=== PATIENT | female | born 1950 | race Caucasian/White ===

== ENCOUNTER 2021-03-26 17:24 | Emergency (ER) | payer MEDICARE, OTHER ==
[2021-03-26] MEDS ORDERED: ULTRAM50 MG PO (18:47)
== END 2021-03-26 19:12 | disposition home or self-care (01) ==
LOC: FER 17:24
DX: S92.341A Displaced fracture of fourth metatarsal bone, right foot, initial encounter for closed fracture (principal); I25.2 Old myocardial infarction; I10 Essential (primary) hypertension; Z79.899 Other long term (current) drug therapy; Z79.82 Long term (current) use of aspirin; W06.XXXA Fall from bed, initial encounter; Y92.009 Unspecified place in unspecified non-institutional (private) residence as the place of occurrence of the external cause
CPT/HCPCS: 73610; 73630

== ENCOUNTER 2021-06-23 11:12 | Inpatient (IN) | payer MEDICARE, OTHER ==
[~2021-06-23] VITALS: Ht 165.1 cm; Wt 49.1 kg
[~2021-06-23 11:12] MED LIST: ULTRAM50 MG PO
[2021-06-23 12:01] LABS: BASOPHIL 0.4 % (0-2); EOSINOPHIL 4.9 % (0-7); HCT 28.3 % (37.0-47.0); HGB 9.2 g/dl (12.5-16.0); LYMPHOCYTE 28.1 % (15-48); MCH 35.7 pg (25.0-31.0); MCHC 32.5 g/dL (32.0-36.0); MCV 109.7 fL (78.0-100.0); MONOCYTE 4.7 % (0-12); MPV 13.2 fL (6.0-9.5); NEUTROPHIL 61.4 % (41-80); NRBC 0; RBC 2.58 M/uL (4.20-5.40); RDW 13.5 % (11.5-14.0); WBC 5.5 K/uL (4.0-10.5)
[2021-06-23 12:05] LABS: BILIRUBIN NEGATIVE (NEGATIVE); BLOOD 1+ Ery/uL (NEGATIVE); CLARITY CLEAR (CLEAR); COLOR YELLOW (YELLOW); GLUCOSE (U) NORMAL (NORMAL); LEUKOCYTES 2+ Leu/uL (NEGATIVE); NITRITE POSITIVE (NEGATIVE); PROTEIN 2+ mg/dL (NEGATIVE); SPECIFIC GRAVITY 1.025 (1.001-1.030); UROBILINOGEN 0.2 mg/dL (0.2-1.0)
[2021-06-23 12:11] LABS: PLT 83 K/uL (150-400)
[2021-06-23 12:19] LABS: BACTERIA 4+
[2021-06-23 12:43] LABS: CORONAVIRUS 2019 SARS-COV-2 POSITIVE (NEGATIVE)
[2021-06-23 12:44] LABS: INFLUENZA A NAA NEGATIVE (NEGATIVE)
[2021-06-23 13:23] LABS: ALBUMIN 2.7 g/dL (3.4-5.0); BILIRUBIN - TOTAL 0.2 mg/dL (0.2-1.0); CREATININE 3.09 mg/dL (0.51-0.95); POTASSIUM 4.2 mmol/L (3.5-5.1); TOTAL PROTEIN 5.7 g/dL (6.4-8.2)
[2021-06-23] MEDS ORDERED: NORVASC5 MG PO (18:14)
[2021-06-23] MEDS ORDERED: ASPIRIN EC81 MG PO (18:15)
[2021-06-23] MEDS ORDERED: SYMBICORT 80-10.2 GM INH (18:16)
[2021-06-23] MEDS ORDERED: CATAPRES-TTS 11 EACH PO (18:17)
[2021-06-23] MEDS ORDERED: NEURONTIN100 MG PO (18:17)
[2021-06-23] MEDS ORDERED: ZOLOFT100 M1 PO (18:18)
[2021-06-23] MEDS ORDERED: XOPENEX HFA15 GM INH (18:18)
[2021-06-23] MEDS ORDERED: XARELTO15 MG PO (18:18)
[2021-06-23] MEDS ORDERED: SPIRIVA18 MCG INH (18:19)
[2021-06-23] MEDS ORDERED: SODIUM BICARBO650 M1 PO (18:19)
[2021-06-24 06:32] LABS: BASOPHIL 0.2 % (0-2); HCT 23.3 % (37.0-47.0); HGB 7.5 g/dl (12.5-16.0); LYMPHOCYTE 40.8 % (15-48); MCHC 32.2 g/dL (32.0-36.0); MCV 108.9 fL (78.0-100.0); MPV 13.3 fL (6.0-9.5); NEUTROPHIL 45.4 % (41-80); NRBC 0; PLT 68 K/uL (150-400); RBC 2.14 M/uL (4.20-5.40); RDW 13.3 % (11.5-14.0)
[2021-06-24 06:41] LABS: WBC 4.8 K/uL (4.0-10.5)
[2021-06-24 06:58] LABS: IRON % SATURATION 34.1 %SAT (20-50)
[2021-06-24 07:23] LABS: CREATININE 2.72 mg/dL (0.51-0.95); FOLIC ACID (SERUM) 13.2 ng/mL (8.6-58.9); POTASSIUM 4.2 mmol/L (3.5-5.1)
[2021-06-24 17:18] LABS: HGB 7.7 g/dl (12.5-16.0); MCH 35.3 pg (25.0-31.0); MCHC 30.8 g/dL (32.0-36.0); MPV 12.9 fL (6.0-9.5); RBC 2.18 M/uL (4.20-5.40); RDW 13.6 % (11.5-14.0); WBC 5.1 K/uL (4.0-10.5)
[2021-06-24 17:20] LABS: MCV 114.7 fL (78.0-100.0)
[2021-06-24 17:35] LABS: BUN/CREAT RATIO (CALC) 31.6 RATIO; CREATININE 2.5 mg/dL (0.51-0.95); MAGNESIUM 1.9 mg/dL (1.8-2.4); PHOSPHORUS 2.6 mg/dL (2.6-4.7)
[2021-06-25 07:24] LABS: BASOPHIL 0.2 % (0-2); EOSINOPHIL 9.7 % (0-7); HCT 24.3 % (37.0-47.0); HGB 7.9 g/dl (12.5-16.0); LYMPHOCYTE 36.1 % (15-48); MCH 35.7 pg (25.0-31.0); MCHC 32.5 g/dL (32.0-36.0); MONOCYTE 7.1 % (0-12); MPV 13.4 fL (6.0-9.5); NRBC 0; RBC 2.21 M/uL (4.20-5.40); RDW 13.5 % (11.5-14.0)
[2021-06-25 07:27] LABS: BUN/CREAT RATIO (CALC) 32.3 RATIO; CREATININE 2.26 mg/dL (0.51-0.95); POTASSIUM 4.1 mmol/L (3.5-5.1)
[2021-06-25 07:56] LABS: WBC 4.7 K/uL (4.0-10.5)
[2021-06-25 07:57] LABS: PLT 69 K/uL (150-400)
--- NOTE | 2021-06-25 12:15 | NUR ---
06/25 Ms. Umanzor lives alone. She has 02 at 2L, portable, rw, 3in1, and s. chair. Her 02 is provided by [facility] out of [place]. Ms. Umanzor chose [facility] for PT and nursing.; awaiting response from [facility]. Her son and granddaughter are supportive. HEr granddaughter is a RN.
[2021-06-26 06:33] LABS: BASOPHIL 0.4 % (0-2); EOSINOPHIL 4.1 % (0-7); HCT 25.4 % (37.0-47.0); HGB 8.3 g/dl (12.5-16.0); MCH 35.5 pg (25.0-31.0); MCHC 32.7 g/dL (32.0-36.0); MCV 108.5 fL (78.0-100.0); MONOCYTE 6.5 % (0-12); MPV 13.3 fL (6.0-9.5); NEUTROPHIL 65.6 % (41-80); NRBC 0; RBC 2.34 M/uL (4.20-5.40); RDW 13.7 % (11.5-14.0)
[2021-06-26 07:02] LABS: PLT 84 K/uL (150-400)
[2021-06-26 07:05] LABS: ALBUMIN 2.4 g/dL (3.4-5.0); BILIRUBIN - TOTAL 0.2 mg/dL (0.2-1.0); CREATININE 1.9 mg/dL (0.51-0.95); GLOBULIN (CALCULATION) 2.7 g/dL; POTASSIUM 4.1 mmol/L (3.5-5.1); TOTAL PROTEIN 5.1 g/dL (6.4-8.2)
[2021-06-26 13:06] LABS: PRO-BNP > 35000 pg/mL (<125)
[2021-06-27 06:36] LABS: BASOPHIL 0.2 % (0-2); EOSINOPHIL 0 % (0-7); HCT 26.1 % (37.0-47.0); HGB 8.2 g/dl (12.5-16.0); LYMPHOCYTE 5.7 % (15-48); MCH 34.9 pg (25.0-31.0); MCHC 31.4 g/dL (32.0-36.0); MCV 111.1 fL (78.0-100.0); MONOCYTE 5.9 % (0-12); MPV 12.4 fL (6.0-9.5); NEUTROPHIL 87.4 % (41-80); NRBC 0; PLT 100 K/uL (150-400); RBC 2.35 M/uL (4.20-5.40); RDW 14.1 % (11.5-14.0); WBC 12.2 K/uL (4.0-10.5)
[2021-06-27 07:31] LABS: ALBUMIN 2.3 g/dL (3.4-5.0); BILIRUBIN - TOTAL 0.4 mg/dL (0.2-1.0); BUN/CREAT RATIO (CALC) 28.3 RATIO; CREATININE 2.19 mg/dL (0.51-0.95); GLOBULIN (CALCULATION) 3.5 g/dL; MAGNESIUM 1.6 mg/dL (1.8-2.4); TOTAL PROTEIN 5.8 g/dL (6.4-8.2)
[2021-06-28 04:36] LABS: BASOPHIL 0.1 % (0-2); EOSINOPHIL 0 % (0-7); HCT 25.5 % (37.0-47.0); HGB 8.1 g/dl (12.5-16.0); LYMPHOCYTE 3.6 % (15-48); MCH 35.1 pg (25.0-31.0); MCHC 31.8 g/dL (32.0-36.0); MCV 110.4 fL (78.0-100.0); MONOCYTE 3.5 % (0-12); MPV 12.9 fL (6.0-9.5); NRBC 0; PLT 105 K/uL (150-400); RBC 2.31 M/uL (4.20-5.40); RDW 14.3 % (11.5-14.0); WBC 16.4 K/uL (4.0-10.5)
[2021-06-28 04:37] LABS: NEUTROPHIL 92.1 % (41-80)
[2021-06-28 04:47] LABS: ALBUMIN 2.5 g/dL (3.4-5.0); BILIRUBIN - TOTAL 0.4 mg/dL (0.2-1.0); BUN/CREAT RATIO (CALC) 28.4 RATIO; C-REACTIVE PROTEIN 16.5 mg/dL (<=0.90); CREATININE 2.5 mg/dL (0.51-0.95); GLOBULIN (CALCULATION) 3.6 g/dL; TOTAL PROTEIN 6.1 g/dL (6.4-8.2)
--- NOTE | 2021-06-28 18:43 | NUR ---
PATIENT MADE COMFORT CARE TODAY. FAMILY AT BEDSIDE. COMFORT MEDS GIVEN MORPHINE, ROXINOL AND ATIVAN.
--- NOTE | 2021-06-30 00:25 | NUR ---
[facility] PICKED UP THE PATIENTS REMAINS.
== END 2021-06-30 00:30 | disposition expired | DRG 871 ==
LOC: FER 11:12 → FMS 15:29 → FTCU 06-27 08:11
PROVIDERS: Family Medicine; Internal Medicine; Nurse Practitioner; ADMIT Internal Medicine
PROC: 8E0ZXY6 Isolation (ICD-10-PCS; principal; 2021-06-23)
PROC: 5A09457 Assistance with Respiratory Ventilation, 24-96 Consecutive Hours, Continuous Positive Airway Pressure (ICD-10-PCS; 2021-06-27)
DX: A41.9 Sepsis, unspecified organism (principal); U07.1 COVID-19; J96.01 Acute respiratory failure with hypoxia; J12.82 Pneumonia due to coronavirus disease 2019; J15.9 Unspecified bacterial pneumonia; E43 Unspecified severe protein-calorie malnutrition; I21.4 Non-ST elevation (NSTEMI) myocardial infarction; N17.9 Acute kidney failure, unspecified; E87.0 Hyperosmolality and hypernatremia; K92.2 Gastrointestinal hemorrhage, unspecified; J98.11 Atelectasis; J44.0 Chronic obstructive pulmonary disease with (acute) lower respiratory infection; N30.00 Acute cystitis without hematuria; Z68.1 Body mass index [BMI] 19.9 or less, adult; R65.20 Severe sepsis without septic shock; Z51.5 Encounter for palliative care; Z66 Do not resuscitate; I95.1 Orthostatic hypotension; N18.30 Chronic kidney disease, stage 3 unspecified; D63.1 Anemia in chronic kidney disease; I48.0 Paroxysmal atrial fibrillation; I73.9 Peripheral vascular disease, unspecified; E86.0 Dehydration; I65.29 Occlusion and stenosis of unspecified carotid artery; R91.1 Solitary pulmonary nodule; Z90.49 Acquired absence of other specified parts of digestive tract; Z87.440 Personal history of urinary (tract) infections; Z90.710 Acquired absence of both cervix and uterus; Z90.89 Acquired absence of other organs; Z98.890 Other specified postprocedural states; Z87.891 Personal history of nicotine dependence; Z79.82 Long term (current) use of aspirin; Z79.01 Long term (current) use of anticoagulants; Z79.51 Long term (current) use of inhaled steroids; Z79.899 Other long term (current) drug therapy; Z93.3 Colostomy status
CPT/HCPCS: 36415; 36600; 70450; 71045; 71250; 80048; 80053; 81001; 82150; 82607; 82728; 82746; 82803; 83540; 83550; 83605; 83690; 83735; 83880; 84100; 84145; 84484; 85025; 85379; 86140; 87040; 87076; 87088; 87186; 87205; 93005; 94640; 94660; 94664; 94667; 94668; 97162; 97166; 97530-GP; 97535; C9113; J0696; J1100; J1940; J2020; J2060; J2270; J2543; J2916; J7030; J7050; J7120; J8540; U0002